=== PATIENT | female | born 1940 | race Caucasian/White ===

== ENCOUNTER 2018-02-28 15:29 | Emergency (ER) | payer MEDICARE, BC, OTHER ==
[~2018-02-28 15:29] MED LIST: AMLO10TA PO; CIPR-259 PO; HYDR-4383 PO; HYDR12.5 PO; KEN0.1O TP; LEVE10006 PO; LISI-643 PO; MAGN296S50 PO; NITR100C6 PO; POLY17PO10 PO; VENL75CA61 PO; WARF-55 PO
[2018-02-28 16:51] LABS: BASOPHILS % (AUTO) 0.2 % (0-1); EOSINOPHILS # (AUTO) 0.1 X10'3 (0-0.9); EOSINOPHILS % (AUTO) 1.7 % (0-6); HEMATOCRIT 47.7 % (35.0-45.0); HEMOGLOBIN 15.7 g/dl (12.0-16.0); LYMPHOCYTES # (AUTO) 0.8 X10'3 (1.1-4.8); LYMPHOCYTES % (AUTO) 11.3 % (21-51); MEAN CORPUSCULAR HEMOGLOBIN 29.7 PG (27.0-31.0); MEAN PLATELET VOLUME 7.7 FL (7.4-10.4); MONOCYTES # (AUTO) 0.4 X10'3 (0-0.9); MONOCYTES % (AUTO) 5.7 % (2-12); NEUTROPHILS # (AUTO) 5.5 X10'3 (1.8-7.7); NEUTROPHILS % (AUTO) 81.1 % (42-75); PLATELET COUNT 313 X10'3 (140-440); RED CELL DISTRIBUTION WIDTH 13.9 % (11.5-14.5); WHITE BLOOD COUNT 6.8 X10'3 (4.5-11.0)
[2018-02-28 17:07] LABS: ALANINE AMINOTRANSFERASE 30 U/L (12-78); ALKALINE PHOSPHATASE 100 IU/L (46-116); ANION GAP 10 (8-16); ASPARTATE AMINO TRANSFERASE 20 U/L (10-37); BILIRUBIN,TOTAL 0.3 MG/DL (0.1-1.0); BLOOD UREA NITROGEN 25 MG/DL (7-18); BUN/CREATININE RATIO 27.2 (6.6-38.0); CALCIUM 9.7 MG/DL (8.5-10.1); CHLORIDE 99 MMOL/L (99-107); CREATININE 0.92 MG/DL (0.40-0.90); GLUCOSE 101 MG/DL (70-104); POTASSIUM 3.8 MMOL/L (3.5-5.1); SODIUM 137 MMOL/L (135-145); TOTAL CARBON DIOXIDE 27.9 MMOL/L (24-32); TOTAL PROTEIN 7.9 G/DL (6.4-8.2); eGFR 59 ML/MIN
[2018-02-28 17:22] LABS: INR 1.5 INR; PARTIAL THROMBOPLASTIN TIME 33 SECONDS (22-32); PROTHROMBIN TIME 14.7 SECONDS (9.0-12.0)
[2018-02-28] MEDS ORDERED: cloNIDine 0.1 mg tablet PO ONE (18:30)
[2018-02-28 19:45] LABS: CLARITY,URINE CLEAR (Clear); COLOR,URINE YELLOW (Yellow); GLUCOSE, URINE NEGATIVE (Neg); KETONES,URINE 15 mg/dl (Neg); LEUKOCYTE ESTERASE ,URINE NEGATIVE (Neg); NITRITES, URINE NEGATIVE (Neg); OCCULT BLOOD,URINE SMALL (Neg); PROTEIN,URINE NEGATIVE (Neg); UROBILINOGEN,URINE 0.2 E.U/dL (0.2-1.0)
[2018-02-28 19:48] LABS: UA COLLECTION TYPE STRAIGHT CATH
[2018-02-28 20:05] VITALS: BP 153/82
[2018-02-28 20:05] LABS: URINE AMPHETAMINE SCREEN NEGATIVE (Neg); URINE BARBITUATE SCREEN NEGATIVE (Neg); URINE BENZODIAZEPINES SCREEN NEGATIVE (Neg); URINE CANNABINOID SCREEN NEGATIVE (Neg); URINE COCAINE SCREEN NEGATIVE (Neg); URINE METHADONE SCREEN NEGATIVE (Neg); URINE OPIATE SCREEN NEGATIVE (Neg); URINE PHENCYCLIDINE SCREEN NEGATIVE (Neg)
[2018-02-28 20:12] LABS: BACTERIA,URINE FEW /HPF (Neg); SQUAMOUS EPITHELIAL CELL,UR MODERATE /LPF (FEW); WBC,URINE 0-4 /HPF (0-4)
== END 2018-02-28 20:33 | disposition home or self-care (01) ==
LOC: ER 15:30
DX: S41.111A Laceration without foreign body of right upper arm, initial encounter (principal); S81.811A Laceration without foreign body, right lower leg, initial encounter; R55 Syncope and collapse; I10 Essential (primary) hypertension; I48.91 Unspecified atrial fibrillation; E78.00 Pure hypercholesterolemia, unspecified; I25.2 Old myocardial infarction; Z86.69 Personal history of other diseases of the nervous system and sense organs; Z86.718 Personal history of other venous thrombosis and embolism; Z98.890 Other specified postprocedural states; Z79.01 Long term (current) use of anticoagulants; Z79.2 Long term (current) use of antibiotics; Z79.899 Other long term (current) drug therapy; W18.39XA Other fall on same level, initial encounter; Y93.89 Activity, other specified; Y92.89 Other specified places as the place of occurrence of the external cause; Y99.8 Other external cause status
CPT/HCPCS: 36415; 70450; 71045; 80053; 80305; 81001; 84484; 85025; 85610; 85730; 99284; P9612

== ENCOUNTER 2018-10-15 07:51 | Emergency (ER) | payer MEDICARE, BC, OTHER ==
[~2018-10-15] VITALS: Ht 170.2 cm; Wt 63.6 kg
[2018-10-15] MEDS ORDERED: ondansetron 4mg rapidly disintigrating tab PO ONE (08:20)
[2018-10-15 09:07] VITALS: BP 171/69
--- NOTE | 2018-10-15 09:14 | NUR ---
trauma called off per dr velázquez
--- NOTE | 2018-10-15 09:25 | NUR ---
pt's brother/caregiver states pt's bp run high
== END 2018-10-15 09:34 | disposition home or self-care (01) ==
LOC: ER 07:51
DX: S00.83XA Contusion of other part of head, initial encounter (principal); S40.012A Contusion of left shoulder, initial encounter; S50.12XA Contusion of left forearm, initial encounter; I48.91 Unspecified atrial fibrillation; E78.00 Pure hypercholesterolemia, unspecified; I10 Essential (primary) hypertension; I25.2 Old myocardial infarction; I25.10 Atherosclerotic heart disease of native coronary artery without angina pectoris; Z86.718 Personal history of other venous thrombosis and embolism; Z98.890 Other specified postprocedural states; Z79.2 Long term (current) use of antibiotics; Z79.01 Long term (current) use of anticoagulants; Z79.899 Other long term (current) drug therapy; W05.0XXA Fall from non-moving wheelchair, initial encounter; Y93.89 Activity, other specified; Y92.89 Other specified places as the place of occurrence of the external cause; Y99.8 Other external cause status
CPT/HCPCS: 36415; 70450; 72125; 85610; 99284; J2405

== ENCOUNTER 2019-04-28 16:40 | Emergency (ER) | payer MEDICARE, BC, OTHER ==
[~2019-04-28] VITALS: Ht 167.6 cm; Wt 60.0 kg
[~2019-04-28 16:40] MED LIST changes: -MAGN296S50 PO; +MAGN296S70 PO
[2019-04-28 16:50] VITALS: BP 162/97
--- NOTE | 2019-04-28 18:10 | NUR ---
ALFONSO WRAPPED AROUND LEFT FOREARM AND RT LOWER LEG
== END 2019-04-28 18:10 | disposition home or self-care (01) ==
LOC: ER 16:41
DX: S60.212A Contusion of left wrist, initial encounter (principal); S50.12XA Contusion of left forearm, initial encounter; I48.91 Unspecified atrial fibrillation; E78.00 Pure hypercholesterolemia, unspecified; I10 Essential (primary) hypertension; I25.2 Old myocardial infarction; Z86.69 Personal history of other diseases of the nervous system and sense organs; Z86.718 Personal history of other venous thrombosis and embolism; Z98.890 Other specified postprocedural states; Z79.2 Long term (current) use of antibiotics; Z79.899 Other long term (current) drug therapy; Z79.01 Long term (current) use of anticoagulants; X58.XXXA Exposure to other specified factors, initial encounter; Y93.89 Activity, other specified; Y92.89 Other specified places as the place of occurrence of the external cause; Y99.8 Other external cause status
CPT/HCPCS: 99282

== ENCOUNTER 2019-05-28 09:10 | Emergency (ER) | payer MEDICARE, BC, OTHER ==
[~2019-05-28] VITALS: Ht 170.2 cm; Wt 63.6 kg
[2019-05-28 11:46] LABS: BASOPHILS # (AUTO) 0.1 X10'3 (0-0.2); EOSINOPHILS # (AUTO) 0.3 X10'3 (0-0.9); EOSINOPHILS % (AUTO) 5.5 % (0-6); HEMATOCRIT 42.8 % (35.0-45.0); LYMPHOCYTES # (AUTO) 1.1 X10'3 (1.1-4.8); LYMPHOCYTES % (AUTO) 17.8 % (21-51); MEAN CORPUSCULAR HEMOGLOBIN 29.3 PG (27.0-31.0); MEAN CORPUSCULAR HGB CONC 32.7 g/dL (33.0-36.5); MEAN CORPUSCULAR VOLUME 89.6 FL (78-98); MEAN PLATELET VOLUME 8.3 FL (7.4-10.4); MONOCYTES # (AUTO) 0.4 X10'3 (0-0.9); MONOCYTES % (AUTO) 7.1 % (2-12); NEUTROPHILS # (AUTO) 4.3 X10'3 (1.8-7.7); NEUTROPHILS % (AUTO) 68.6 % (42-75); PLATELET COUNT 316 X10'3 (140-440); RED BLOOD COUNT 4.78 X10'6 (4.20-5.60); RED CELL DISTRIBUTION WIDTH 13.9 % (11.5-14.5); WHITE BLOOD COUNT 6.2 X10'3 (4.5-11.0)
[2019-05-28 11:57] LABS: PARTIAL THROMBOPLASTIN TIME 51 SECONDS (22-32)
[2019-05-28 11:59] LABS: ALANINE AMINOTRANSFERASE 18 U/L (12-78); ALBUMIN 3.4 G/DL (3.4-5.0); ALKALINE PHOSPHATASE 100 IU/L (46-116); ANION GAP 7 (8-16); ASPARTATE AMINO TRANSFERASE 18 U/L (10-37); BILIRUBIN,TOTAL 0.3 MG/DL (0.1-1.0); BLOOD UREA NITROGEN 23 MG/DL (7-18); BUN/CREATININE RATIO 28.4 (6.6-38.0); CALCIUM 8.9 MG/DL (8.5-10.1); CHLORIDE 107 MMOL/L (99-107); CREATININE 0.81 MG/DL (0.40-0.90); GLUCOSE 90 MG/DL (70-104); SODIUM 143 MMOL/L (135-145); TOTAL PROTEIN 6.9 G/DL (6.4-8.2); eGFR 69 ML/MIN
[2019-05-28] MEDS ORDERED: CLIN-90 PO (12:33)
[2019-05-28 12:48] VITALS: BP 191/125
== END 2019-05-28 12:51 | disposition home or self-care (01) ==
LOC: ER 09:10
DX: H72.92 Unspecified perforation of tympanic membrane, left ear (principal); H92.01 Otalgia, right ear; I48.91 Unspecified atrial fibrillation; E78.00 Pure hypercholesterolemia, unspecified; I10 Essential (primary) hypertension; I25.2 Old myocardial infarction; Z86.718 Personal history of other venous thrombosis and embolism; Z98.890 Other specified postprocedural states; Z86.69 Personal history of other diseases of the nervous system and sense organs; Z79.2 Long term (current) use of antibiotics; Z79.01 Long term (current) use of anticoagulants; Z79.899 Other long term (current) drug therapy
CPT/HCPCS: 36415; 80053; 85025; 85610; 85730; 99284

== ENCOUNTER 2020-06-21 15:40 | Emergency (ER) | payer MEDICARE, BC ==
[~2020-06-21] VITALS: Ht 170.2 cm; Wt 61.4 kg
[~2020-06-21 15:40] MED LIST changes: -AMLO10TA PO; +ASPI-611 PO; +ATOR40TA72 PO; +CARV-50 PO; -CIPR-259 PO; +CLOP75TA33 PO; +ENOX30SY10 SQ; +FURO40TA4 PO; -HYDR-4383 PO; -HYDR12.5 PO; +ISOS30TA84 PO; -LISI-643 PO; +LISI-790 PO; -MAGN296S70 PO; -NITR100C6 PO; -POLY17PO10 PO; +POLY510P31 PO; -WARF-55 PO; +WARF6TAB49 PO
[2020-06-21 15:43] VITALS: BP 143/65
== END 2020-06-21 19:48 | disposition left against medical advice (07) ==
LOC: ER 15:41
DX: L89.159 Pressure ulcer of sacral region, unspecified stage (principal); Z53.21 Procedure and treatment not carried out due to patient leaving prior to being seen by health care provider

== ENCOUNTER 2020-06-22 07:55 | Emergency (ER) | payer MEDICARE, BC, OTHER ==
[~2020-06-22] VITALS: Ht 170.2 cm; Wt 61.4 kg
[2020-06-22 10:39] LABS: BASOPHILS % (AUTO) 0.6 % (0-1); EOSINOPHILS # (AUTO) 0.3 X10'3 (0-0.9); EOSINOPHILS % (AUTO) 4.3 % (0-6); HEMATOCRIT 32.5 % (35.0-45.0); HEMOGLOBIN 10.4 g/dl (12.0-16.0); LYMPHOCYTES # (AUTO) 0.8 X10'3 (1.1-4.8); LYMPHOCYTES % (AUTO) 9.8 % (21-51); MEAN CORPUSCULAR HEMOGLOBIN 30.1 PG (27.0-31.0); MEAN CORPUSCULAR HGB CONC 32.2 g/dL (33.0-36.5); MEAN CORPUSCULAR VOLUME 93.7 FL (78-98); MEAN PLATELET VOLUME 8.6 FL (7.4-10.4); MONOCYTES # (AUTO) 0.5 X10'3 (0-0.9); MONOCYTES % (AUTO) 6.5 % (2-12); NEUTROPHILS # (AUTO) 6.2 X10'3 (1.8-7.7); NEUTROPHILS % (AUTO) 78.8 % (42-75); PLATELET COUNT 335 X10'3 (140-440); RED BLOOD COUNT 3.47 X10'6 (4.20-5.60); RED CELL DISTRIBUTION WIDTH 14.5 % (11.5-14.5); WHITE BLOOD COUNT 7.9 X10'3 (4.5-11.0)
[2020-06-22 10:44] LABS: OCCULT BLOOD STOOL POSITIVE (Neg)
[2020-06-22 10:52] LABS: ALANINE AMINOTRANSFERASE 33 U/L (12-78); ALBUMIN 2.8 G/DL (3.4-5.0); ALBUMIN/GLOBULIN RATIO 0.8 (1.1-1.5); ALKALINE PHOSPHATASE 119 IU/L (46-116); ANION GAP 11 (8-16); ASPARTATE AMINO TRANSFERASE 23 U/L (10-37); BILIRUBIN,TOTAL 0.4 MG/DL (0.1-1.0); BLOOD UREA NITROGEN 28 MG/DL (7-18); BUN/CREATININE RATIO 34.6 (6.6-38.0); CALCIUM 8.8 MG/DL (8.5-10.1); CHLORIDE 106 MMOL/L (99-107); CREATININE 0.81 MG/DL (0.40-0.90); GLUCOSE 108 MG/DL (70-104); POTASSIUM 4.3 MMOL/L (3.5-5.1); SODIUM 143 MMOL/L (135-145); TOTAL CARBON DIOXIDE 26.4 MMOL/L (24-32); TOTAL PROTEIN 6.1 G/DL (6.4-8.2); eGFR 68 ML/MIN
[2020-06-22] MEDS ORDERED: magnesium citrate 296ml oral solution PO ONE (11:50)
[2020-06-22] MEDS ORDERED: normal saline 1000ML IV soln IVB ONE (11:50)
--- NOTE | 2020-06-22 14:28 | NUR ---
PATIENT REPOSITIONED AND PLACED ON A BEDPAN,CALL LIGHT WITHIN REACH.INSTRUCTED TO USE CALL LIGHT WHEN ABLE TO DEFECATE,OTHERWISE RN WILL CHECK ON HER AFTER 10 MINUTES.
[2020-06-22 15:19] VITALS: BP 131/73
== END 2020-06-22 16:56 | disposition home or self-care (01) ==
LOC: ER 07:56
DX: K92.2 Gastrointestinal hemorrhage, unspecified (principal); R10.84 Generalized abdominal pain; R53.83 Other fatigue; R53.1 Weakness; K56.41 Fecal impaction; I48.91 Unspecified atrial fibrillation; I25.10 Atherosclerotic heart disease of native coronary artery without angina pectoris; E78.00 Pure hypercholesterolemia, unspecified; I10 Essential (primary) hypertension; I25.2 Old myocardial infarction; Z86.69 Personal history of other diseases of the nervous system and sense organs; Z86.73 Personal history of transient ischemic attack (TIA), and cerebral infarction without residual deficits; Z86.711 Personal history of pulmonary embolism; Z87.440 Personal history of urinary (tract) infections; Z86.718 Personal history of other venous thrombosis and embolism; Z98.890 Other specified postprocedural states; Z79.82 Long term (current) use of aspirin; Z79.899 Other long term (current) drug therapy
CPT/HCPCS: 36415; 74176; 80053; 82272; 85025; 93005; 96360; 96361; 99285; J7030

== ENCOUNTER 2020-06-24 09:00 | Emergency (ER) | payer MEDICARE, BC, OTHER ==
[~2020-06-24] VITALS: Ht 170.2 cm; Wt 63.6 kg
[2020-06-24] MEDS ORDERED: silver nitrate applicator stick TP ONE ×2 (10:05→10:55)
[2020-06-24 10:37] VITALS: BP 148/95
== END 2020-06-24 11:28 | disposition home or self-care (01) ==
LOC: ER 09:01
DX: S41.111A Laceration without foreign body of right upper arm, initial encounter (principal); I48.91 Unspecified atrial fibrillation; I25.10 Atherosclerotic heart disease of native coronary artery without angina pectoris; E78.00 Pure hypercholesterolemia, unspecified; I10 Essential (primary) hypertension; I25.2 Old myocardial infarction; Z86.73 Personal history of transient ischemic attack (TIA), and cerebral infarction without residual deficits; Z86.69 Personal history of other diseases of the nervous system and sense organs; Z86.711 Personal history of pulmonary embolism; Z87.440 Personal history of urinary (tract) infections; Z86.718 Personal history of other venous thrombosis and embolism; Z98.890 Other specified postprocedural states; Z79.82 Long term (current) use of aspirin; Z79.899 Other long term (current) drug therapy; W45.8XXA Other foreign body or object entering through skin, initial encounter; Y93.89 Activity, other specified; Y92.89 Other specified places as the place of occurrence of the external cause; Y99.8 Other external cause status
CPT/HCPCS: 12002; 99284

== ENCOUNTER 2020-06-24 22:55 | Emergency (ER) | payer MEDICARE, BC, OTHER ==
[~2020-06-24] VITALS: Ht 170.2 cm; Wt 63.6 kg
[2020-06-25 01:19] VITALS: BP 114/71
== END 2020-06-25 01:24 | disposition home or self-care (01) ==
LOC: ER 22:56
DX: S51.811D Laceration without foreign body of right forearm, subsequent encounter (principal); I48.91 Unspecified atrial fibrillation; I25.10 Atherosclerotic heart disease of native coronary artery without angina pectoris; E78.00 Pure hypercholesterolemia, unspecified; I10 Essential (primary) hypertension; I25.2 Old myocardial infarction; Z86.73 Personal history of transient ischemic attack (TIA), and cerebral infarction without residual deficits; Z86.69 Personal history of other diseases of the nervous system and sense organs; Z86.711 Personal history of pulmonary embolism; Z87.440 Personal history of urinary (tract) infections; Z86.718 Personal history of other venous thrombosis and embolism; Z98.890 Other specified postprocedural states; Z79.82 Long term (current) use of aspirin; Z79.899 Other long term (current) drug therapy; X58.XXXD Exposure to other specified factors, subsequent encounter
CPT/HCPCS: 99284

== ENCOUNTER 2020-06-26 11:28 | Observation (INO) | payer MEDICARE, BC, OTHER ==
[~2020-06-26] VITALS: Ht 170.2 cm; Wt 59.1 kg
[2020-06-26 12:21] LABS: BASOPHILS % (AUTO) 0.5 % (0-1); EOSINOPHILS # (AUTO) 0.5 X10'3 (0-0.9); EOSINOPHILS % (AUTO) 6.9 % (0-6); HEMATOCRIT 27.3 % (35.0-45.0); HEMOGLOBIN 8.7 g/dl (12.0-16.0); MEAN CORPUSCULAR HEMOGLOBIN 29.9 PG (27.0-31.0); MEAN CORPUSCULAR HGB CONC 31.8 g/dL (33.0-36.5); MEAN CORPUSCULAR VOLUME 94.1 FL (78-98); MEAN PLATELET VOLUME 8.5 FL (7.4-10.4); MONOCYTES # (AUTO) 0.8 X10'3 (0-0.9); MONOCYTES % (AUTO) 9.8 % (2-12); NEUTROPHILS # (AUTO) 5.6 X10'3 (1.8-7.7); NEUTROPHILS % (AUTO) 69.8 % (42-75); PLATELET COUNT 357 X10'3 (140-440); RED CELL DISTRIBUTION WIDTH 15.1 % (11.5-14.5)
[2020-06-26] MEDS ORDERED: iohexol 350MG/ML 100ml bottle IV ONE (12:24)
[2020-06-26 12:28] LABS: PARTIAL THROMBOPLASTIN TIME 50 SECONDS (22-32)
[2020-06-26 12:30] LABS: ALANINE AMINOTRANSFERASE 28 U/L (12-78); ALBUMIN 2.7 G/DL (3.4-5.0); ALBUMIN/GLOBULIN RATIO 0.9 (1.1-1.5); ALKALINE PHOSPHATASE 109 IU/L (46-116); ANION GAP 10 (8-16); ASPARTATE AMINO TRANSFERASE 20 U/L (10-37); BILIRUBIN,TOTAL 0.4 MG/DL (0.1-1.0); BLOOD UREA NITROGEN 31 MG/DL (7-18); CALCIUM 8.4 MG/DL (8.5-10.1); CHLORIDE 106 MMOL/L (99-107); CREATININE 1.07 MG/DL (0.40-0.90); GLUCOSE 112 MG/DL (70-104); POTASSIUM 4.1 MMOL/L (3.5-5.1); SODIUM 143 MMOL/L (135-145); TOTAL CARBON DIOXIDE 26.9 MMOL/L (24-32); TOTAL PROTEIN 5.7 G/DL (6.4-8.2); eGFR 50 ML/MIN
[2020-06-26 12:38] LABS: TROPONIN I 0.05 NG/ML (0.0-0.05)
--- NOTE | 2020-06-26 13:21 | NUR ---
TELE NEURO ENDED WITH DR. HERNANDEZ.
[2020-06-26] MEDS ORDERED: magnesium 2GM in 50ml NS 50 ML IV PRN (14:00)
[2020-06-26] MEDS ORDERED: potassium Cl 20 mEq SR tablet PO PRN ×2 (14:00)
[2020-06-26] MEDS ORDERED: mag hydrox/Alum hydrox/simeth 30ml oral suspension PO PRN (14:00)
[2020-06-26] MEDS ORDERED: ondansetron/PF 4mg/2ml inj IV PRN (14:00)
[2020-06-26] MEDS ORDERED: magnesium hydroxide 30ml (MOM) UD suspension PO PRN (14:00)
[2020-06-26] MEDS ORDERED: magnesium 4gm in 100ml NS 100 ML IV PRN (14:00)
[2020-06-26] MEDS ORDERED: acetaminophen 325mg tablet PO PRN (14:00)
[2020-06-26] MEDS ORDERED: potassium Cl 40MEQ/1/2NS 520ml 520 ML IV PRN ×2 (14:00)
--- NOTE | 2020-06-26 16:40 | NUR ---
WOUND LOCATED ON RIGHT BUTTOCKS. PICTURE TAKEN AND PLACED ON CHART.
--- NOTE | 2020-06-26 18:41 | NUR ---
Per day shift RN, son went home to get medication list.
[2020-06-26] MEDS: K and/or MAG REPLACEMENT MC SCH (18:42)
--- NOTE | 2020-06-26 19:31 | NUR ---
Patient in room ED 10. I have received report from Lindsay WYNNE and had the opportunity to ask questions and assume patient care.
[2020-06-26 20:00] VITALS: BP 127/77
[2020-06-26 22:00] VITALS: BP 123/69
[2020-06-26] MEDS ORDERED: polyethylene glycol 3350 17gm powd pack PO PRN (22:50)
[2020-06-26] MEDS ORDERED: levetiracetam 250mg tablet PO ONE (23:15)
[2020-06-26 23:47] LABS: CLARITY,URINE CLOUDY (Clear); COLOR,URINE YELLOW (Yellow); GLUCOSE, URINE NEGATIVE (Neg); KETONES,URINE TRACE mg/dl (Neg); LEUKOCYTE ESTERASE ,URINE MODERATE (Neg); NITRITES, URINE POSITIVE (Neg); OCCULT BLOOD,URINE LARGE (Neg); PH,URINE 5.5 (4.8-8.0); PROTEIN,URINE NEGATIVE (Neg); UA COLLECTION TYPE CLN CATCH MIDSTREAM; UROBILINOGEN,URINE 0.2 E.U/dL (0.2-1.0)
[2020-06-26 23:59] LABS: BACTERIA,URINE 3+ /HPF (Neg); MUCUS STRANDS NONE SEEN /LPF (Neg); RBC,URINE 0-2 /HPF (0-2); SQUAMOUS EPITHELIAL CELL,UR NONE SEEN /LPF (FEW); WBC,URINE TNTC /HPF (0-4)
[2020-06-27 02:00] VITALS: BP 141/79
[2020-06-27 06:00] VITALS: BP 139/74
--- NOTE | 2020-06-27 06:34 | NUR ---
Patient in room ORTHO 4011. I have received report from Apple WYNNE and had the opportunity to ask questions and assume patient care.
--- NOTE | 2020-06-27 06:37 | NUR ---
Problems reprioritized. Patient report given, questions answered & plan of care reviewed with Alma WYNNE.
[2020-06-27 07:13] LABS: BASOPHILS % (AUTO) 0.6 % (0-1); EOSINOPHILS # (AUTO) 0.6 X10'3 (0-0.9); EOSINOPHILS % (AUTO) 8.8 % (0-6); HEMATOCRIT 26.8 % (35.0-45.0); HEMOGLOBIN 8.9 g/dl (12.0-16.0); LYMPHOCYTES # (AUTO) 0.8 X10'3 (1.1-4.8); LYMPHOCYTES % (AUTO) 11.3 % (21-51); MEAN CORPUSCULAR HEMOGLOBIN 30.8 PG (27.0-31.0); MEAN CORPUSCULAR HGB CONC 33.3 g/dL (33.0-36.5); MEAN CORPUSCULAR VOLUME 92.7 FL (78-98); MEAN PLATELET VOLUME 8.5 FL (7.4-10.4); MONOCYTES # (AUTO) 0.6 X10'3 (0-0.9); MONOCYTES % (AUTO) 8.7 % (2-12); NEUTROPHILS # (AUTO) 5.2 X10'3 (1.8-7.7); NEUTROPHILS % (AUTO) 70.6 % (42-75); PLATELET COUNT 375 X10'3 (140-440); RED BLOOD COUNT 2.89 X10'6 (4.20-5.60); WHITE BLOOD COUNT 7.4 X10'3 (4.5-11.0)
[2020-06-27 07:39] LABS: ALANINE AMINOTRANSFERASE 29 U/L (12-78); ALBUMIN 2.9 G/DL (3.4-5.0); ALBUMIN/GLOBULIN RATIO 0.9 (1.1-1.5); ALKALINE PHOSPHATASE 120 IU/L (46-116); ANION GAP 10 (8-16); ASPARTATE AMINO TRANSFERASE 22 U/L (10-37); BILIRUBIN,TOTAL 0.5 MG/DL (0.1-1.0); BLOOD UREA NITROGEN 22 MG/DL (7-18); BUN/CREATININE RATIO 27.5 (6.6-38.0); CALCIUM 9.2 MG/DL (8.5-10.1); CHLORIDE 106 MMOL/L (99-107); CHOL/HDL RATIO 3.4 (0.00-4.99); CHOLESTEROL 165 MG/DL (0-200); GLUCOSE 97 MG/DL (70-104); HDL CHOLESTEROL 49 MG/DL (35-60); LDL CHOLESTEROL 92 MG/DL (50-100); MAGNESIUM 2.2 MG/DL (1.5-2.4); POTASSIUM 4.2 MMOL/L (3.5-5.1); SODIUM 143 MMOL/L (135-145); TOTAL CARBON DIOXIDE 27.4 MMOL/L (24-32); TRIGLYCERIDES 101 MG/DL (20-135); eGFR 69 ML/MIN
[2020-06-27 07:53] LABS: HEMOGLOBIN A1C 5.4 % (4.5-6.2)
[2020-06-27] MEDS ORDERED: venlafaxine XR 75mg capsule (Q24H) PO SCH (08:00)
[2020-06-27] MEDS: K and/or MAG REPLACEMENT MC SCH (08:00)
[2020-06-27] MEDS ORDERED: atorvastatin 20mg tablet PO SCH (08:00)
[2020-06-27] MEDS ORDERED: levetiracetam 250mg tablet PO SCH (08:00)
[2020-06-27] MEDS ORDERED: CefTRIAXone/D5W-Rocephin 1gm 50 ML IV SCH (08:00)
[2020-06-27] MEDS ORDERED: clopidogrel 75mg tablet PO SCH (08:00)
[2020-06-27] MEDS ORDERED: WARFARIN SODIUM 6 MG PO SCH (08:00)
[2020-06-27] MEDS ORDERED: CefTRIAXone/D5W-Rocephin 1gm 50 ML IV ONE (08:35)
[2020-06-27 10:00] VITALS: BP 125/71
--- NOTE | 2020-06-27 10:47 | NUR ---
Malnutrition Consult "low appetite": Pt admit w/ slurred speech and resolved expressive aphasia w/ concerns for stroke now close to baseline per DO note. A1C and lipid panel WNL. Pt placed on clear liquid following passing RN BSS PO 25% first meal last night. Pt has no significant weakness or edema noted, appears well-developed/well-nourished per ER note, and has no scaled wt this admit or prior scaled wt hx. Pt lacks minimum two malnutrition criteria at this time. To provide initial assessment on above date. Addendum: 06/27/20 at [address]ín [address] Amended: Links added.
[2020-06-27] MEDS ORDERED: HYDROcodone/acetaminophen 5mg/325mg tablet PO PRN (12:55)
[2020-06-27] MEDS ORDERED: CEPH500C2 PO (14:00)
--- NOTE | 2020-06-27 14:53 | NUR ---
Patient was discharged home accompanied by her son via powered wheelchair. Discharge instructions given to patient and the son present at bedside. Both verbalized understanding of instructions made. Peripheral IV catheter removed, tip intact. Right forearm skin tear dressing changed prior to discharge then covered with optifoam. A small blood clot noted on the surface of the wound. Son was instructed to report to the patient's PCP or go to urgent care if the wound has signs and symptoms of infection noted. I did not see any signs of infection on the right forearm skin tear during dressing change. Telephone number of Dr. Lemos office was given to the patient's son to call for follow up appointment in 1 week. New prescription e-sent to patient pharmacy. Instructed patient to ensure she has all her belongings with her before leaving.
[2020-06-27] MEDS ORDERED: lactobacillus rhamnosus 10,000 MMU CELLS/CAPSULE PO SCH (20:00)
[2020-06-27] MEDS ORDERED: warfarin 3mg tablet PO ONE (21:00)
[2020-06-28] MEDS ORDERED: CefTRIAXone/D5W-Rocephin 1gm 50 ML IV SCH (08:00)
== END 2020-06-27 14:53 | disposition home or self-care (01) ==
LOC: ER 11:29 → ED HOLD 13:57 → ORTHO 4S 19:38
PROVIDERS: ADMIT Family Medicine; ATTEND Family Medicine
DX: G45.9 Transient cerebral ischemic attack, unspecified (principal); I65.23 Occlusion and stenosis of bilateral carotid arteries; I25.10 Atherosclerotic heart disease of native coronary artery without angina pectoris; I11.0 Hypertensive heart disease with heart failure; I50.9 Heart failure, unspecified; I48.20 Chronic atrial fibrillation, unspecified; G40.909 Epilepsy, unspecified, not intractable, without status epilepticus; E78.5 Hyperlipidemia, unspecified; D64.9 Anemia, unspecified; I25.2 Old myocardial infarction; E78.00 Pure hypercholesterolemia, unspecified; N39.0 Urinary tract infection, site not specified; Z86.73 Personal history of transient ischemic attack (TIA), and cerebral infarction without residual deficits; Z86.718 Personal history of other venous thrombosis and embolism; Z86.711 Personal history of pulmonary embolism; Z87.891 Personal history of nicotine dependence; Z79.01 Long term (current) use of anticoagulants; Z79.02 Long term (current) use of antithrombotics/antiplatelets; Z79.899 Other long term (current) drug therapy
CPT/HCPCS: 36415; 70450; 70496; 70498; 70551; 71045; 80053; 80061; 81001; 83036; 83605; 83735; 84145; 84484; 85025; 85610; 85730; 87040; 87077; 87081; 87088; 87186; 93005; 93308; 96365; 96375; 99285; G0378; J0696; J2405; Q9967

== ENCOUNTER 2020-07-07 12:37 | Emergency (ER) | payer MEDICARE, BC ==
[~2020-07-07] VITALS: Ht 170.2 cm; Wt 63.0 kg
[~2020-07-07 12:37] MED LIST changes: +CEPH500C2 PO; -ENOX30SY10 SQ
[2020-07-07] MEDS ORDERED: normal saline 1000ML IV soln IV ONE (13:05)
[2020-07-07 13:56] LABS: BASOPHILS % (AUTO) 0.6 % (0-1); EOSINOPHILS # (AUTO) 0.6 X10'3 (0-0.9); EOSINOPHILS % (AUTO) 7.5 % (0-6); HEMATOCRIT 29.1 % (35.0-45.0); HEMOGLOBIN 9.2 g/dl (12.0-16.0); LYMPHOCYTES # (AUTO) 0.8 X10'3 (1.1-4.8); MEAN CORPUSCULAR HEMOGLOBIN 29.3 PG (27.0-31.0); MEAN CORPUSCULAR HGB CONC 31.6 g/dL (33.0-36.5); MEAN CORPUSCULAR VOLUME 92.7 FL (78-98); MEAN PLATELET VOLUME 8.4 FL (7.4-10.4); MONOCYTES # (AUTO) 0.8 X10'3 (0-0.9); MONOCYTES % (AUTO) 10.4 % (2-12); NEUTROPHILS # (AUTO) 5.2 X10'3 (1.8-7.7); NEUTROPHILS % (AUTO) 70.5 % (42-75); PLATELET COUNT 437 X10'3 (140-440); RED BLOOD COUNT 3.14 X10'6 (4.20-5.60); RED CELL DISTRIBUTION WIDTH 15.3 % (11.5-14.5); WHITE BLOOD COUNT 7.4 X10'3 (4.5-11.0)
[2020-07-07 14:11] LABS: ALANINE AMINOTRANSFERASE 33 U/L (12-78); ALBUMIN/GLOBULIN RATIO 0.9 (1.1-1.5); ALKALINE PHOSPHATASE 114 IU/L (46-116); ANION GAP 8 (8-16); ASPARTATE AMINO TRANSFERASE 24 U/L (10-37); BILIRUBIN,TOTAL 0.3 MG/DL (0.1-1.0); BLOOD UREA NITROGEN 30 MG/DL (7-18); BUN/CREATININE RATIO 27.5 (6.6-38.0); CALCIUM 8.7 MG/DL (8.5-10.1); CHLORIDE 105 MMOL/L (99-107); CREATININE 1.09 MG/DL (0.40-0.90); GLUCOSE 149 MG/DL (70-104); POTASSIUM 4.3 MMOL/L (3.5-5.1); SODIUM 142 MMOL/L (135-145); TOTAL CARBON DIOXIDE 28.7 MMOL/L (24-32); TOTAL PROTEIN 6.5 G/DL (6.4-8.2); eGFR 49 ML/MIN
[2020-07-07] MEDS ORDERED: lactulose 20gm/30ml cup PO ONE (15:30)
[2020-07-07] MEDS ORDERED: ondansetron/PF 4mg/2ml inj IV ONE (15:30)
[2020-07-07] MEDS ORDERED: bisacodyl 10mg suppository rectal RC STA (15:30)
[2020-07-07] MEDS ORDERED: sodium polystyrene sulfonate ENEMA 30gm/120ml RC ONE (16:30)
[2020-07-07] MEDS ORDERED: METR-159 PO (16:35)
[2020-07-07] MEDS ORDERED: DOXY100C76 PO (16:35)
--- NOTE | 2020-07-07 17:35 | NUR ---
Strait cath attempted for urine. Not enough urine in bladder for UA.
[2020-07-07 18:16] VITALS: BP 136/73
== END 2020-07-07 18:36 | disposition home or self-care (01) ==
LOC: ER 12:38
DX: K56.41 Fecal impaction (principal); N71.9 Inflammatory disease of uterus, unspecified; I48.91 Unspecified atrial fibrillation; I25.10 Atherosclerotic heart disease of native coronary artery without angina pectoris; E78.00 Pure hypercholesterolemia, unspecified; I10 Essential (primary) hypertension; I25.2 Old myocardial infarction; Z86.73 Personal history of transient ischemic attack (TIA), and cerebral infarction without residual deficits; Z86.69 Personal history of other diseases of the nervous system and sense organs; Z86.711 Personal history of pulmonary embolism; Z87.440 Personal history of urinary (tract) infections; Z86.718 Personal history of other venous thrombosis and embolism; Z98.890 Other specified postprocedural states; Z79.82 Long term (current) use of aspirin; Z79.2 Long term (current) use of antibiotics; Z79.899 Other long term (current) drug therapy
CPT/HCPCS: 36415; 71045; 74176; 80053; 83605; 84145; 85025; 87040; 93005; 96361; 96374; 99285; J2405; J7030